=== PATIENT | male | born 2000 | race Caucasian/White ===

== ENCOUNTER → 2023-09-10 | Outpatient (CLI) | payer OTHER | LOC: M PLAIMG 10:07 | PROVIDERS: ATTEND Physician Assistant | DX: M25.551 Pain in right hip (principal) ==

== ENCOUNTER 2023-11-19 06:07 | Day surgery (SDC) | payer OTHER ==
[~2023-11-19] VITALS: Ht 177.8 cm; Wt 90.7 kg
[2023-11-19] MEDS ORDERED: HYDROmorphone HCL 2MG/ML 1ML VIAL As Ordered ONE (07:03)
[2023-11-19] MEDS ORDERED: propofoL 200 MG/20 ML VIAL As Ordered ONE (07:04)
[2023-11-19] MEDS ORDERED: MIDAZOLAM INJ 2MG/2ML VIAL As Ordered ONE (07:04)
[2023-11-19] MEDS ORDERED: GLYCOPYRROLATE INJ 0.2 MG/ML 2 ML VIAL As Ordered ONE (07:04)
[2023-11-19] MEDS ORDERED: fentaNYL 100 MCG/2 ML INJECTION As Ordered ONE (07:04)
[2023-11-19] MEDS ORDERED: LIDOCAINE 2% 100MG/5ML SDV (FOR ANES.) As Ordered ONE (07:04)
[2023-11-19] MEDS: LR 1,000 ML IV SCH ×2 (07:05→11:24)
[2023-11-19] MEDS ORDERED: ONDANSETRON 4MG 2ML VIAL As Ordered ONE (07:05)
[2023-11-19] MEDS ORDERED: ROCURONIUM BROMIDE 50MG/5ML VIAL As Ordered ONE (07:17)
[2023-11-19] MEDS: ceFAZolin SOD 2 GM in IV 1 EA IV ONE (07:50)
[2023-11-19] MEDS: TRANEXAMIC ACID 100 MG/ML 10ML VIAL As Ordered ONE (07:57)
[2023-11-19] MEDS: TRANEXAMIC ACID 100 MG/ML 10ML VIAL IV ONE (07:57)
[2023-11-19] MEDS ORDERED: dexmedeTOMIDine (4MCG/ML)200MCG/50ML BTL (PRECEDEX) As Ordered ONE (07:59)
[2023-11-19] MEDS ORDERED: SUGAMMADEX SODIUM 500 MG/5 ML VIAL (BRIDION) As Ordered ONE (08:18)
[2023-11-19] MEDS ORDERED: ePHEDrine SULFATE 25 MG/5 ML(5MG/ML) SYRINGE As Ordered ONE (08:37)
[2023-11-19] MEDS ORDERED: ACETAMINOPHEN 1000MG 100ML IV BAG As Ordered ONE (09:09)
[2023-11-19] MEDS: VANCOMYCIN 1000MG/20ML VIAL As Ordered ONE (09:59)
[2023-11-19] MEDS ORDERED: ONDANSETRON 4MG 2ML VIAL IV PRN (10:15)
[2023-11-19] MEDS ORDERED: fentaNYL 100 MCG/2 ML INJECTION IV PRN (10:15)
[2023-11-19] MEDS: oxyCODONE 5MG TAB PO PRN (11:20)
[2023-11-19] MEDS: HYDROMORPHONE HCL 0.5 MG/ 0.5 ML SYRINGE IV PRN (11:20)
[2023-11-19] MEDS ORDERED: KETOROLAC 60MG 2ML VIAL As Ordered ONE (12:16)
[2023-11-19] MEDS: ONDANSETRON 4MG 2ML VIAL IV PRN (12:46)
[2023-11-19 13:00] VITALS: BP 110/68; TEMP 98.4; O2SAT 98
== END 2023-11-19 13:13 | disposition home or self-care (01) ==
LOC: M SDC 06:07
PROVIDERS: ATTEND Student in an Organized Health Care Education/Training Program
DX: Q65.89 Other specified congenital deformities of hip (principal)
CPT/HCPCS: 27450; 73552; 76000; C1713; C1769; C9290; J0131; J0665; J0690; J1100; J1170; J1885; J2250; J2405; J3010; J3370

== ENCOUNTER → 2024-11-15 | Outpatient (REF) | LOC: M PLAIMG 08:04 | PROVIDERS: ATTEND Internal Medicine | DX: M25.551 Pain in right hip (principal); M25.552 Pain in left hip ==